=== PATIENT | male | born 1945 | race Two or more races ===

== ENCOUNTER 2017-11-15 12:18 | Emergency (ER) | payer MEDICARE ==
[~2017-11-15] VITALS: Ht 175.3 cm; Wt 96.2 kg
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
[2017-11-15] MEDS ORDERED: DIATR MEGLU/DIATRIZOATE SODIUM 30 ML BOTTLE (GASTROGRAPHIN) ONE (12:48)
[2017-11-15] MEDS ORDERED: DIATR MEGLU/DIATRIZOATE SODIUM 30 ML BOTTLE (GASTROGRAPHIN) PO ONE (13:00)
--- NOTE | 2017-11-15 13:26 | NUR ---
CALLED [facility] FOR TRANSPORTATION GOING BACK TO [facility] ETA [phone]
[2017-11-15 17:35] VITALS: BP 128/78
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
== END 2017-11-15 17:39 | disposition home or self-care (01) ==
LOC: ER 12:21
DX: K94.23 Gastrostomy malfunction (principal); G93.40 Encephalopathy, unspecified; N18.6 End stage renal disease; Z99.2 Dependence on renal dialysis; Z88.1 Allergy status to other antibiotic agents; Z88.2 Allergy status to sulfonamides
CPT/HCPCS: 43752; 74000; 99284; A4606 ×2; Q9963 ×2; Z7610

== ENCOUNTER 2017-11-15 22:10 | Emergency (ER) | payer MEDICARE ==
[~2017-11-15] VITALS: Ht 172.7 cm; Wt 89.4 kg
--- NOTE | 2017-11-15 22:15 | NUR ---
PT TO ER BED 7, CRISTINA BARNES FROM [facility] FOR G TUBE PLACEMENT. PT WAS HERE EARLIER TODAY FOR SAME C/O. VSS/RESP EVEN UNLABORED/NAD NOTED/SKIN WARM AND DRY. AWAITING MD STONE.
--- NOTE | 2017-11-15 22:20 | NUR ---
AT BEDSIDE FOR EVAL.
--- NOTE | 2017-11-15 22:25 | NUR ---
AT BEDSIDE FOR G TUBE PLACEMENT.
[2017-11-15] MEDS ORDERED: DIATR MEGLU/DIATRIZOATE SODIUM 30 ML BOTTLE (GASTROGRAPHIN) ONE (22:32)
--- NOTE | 2017-11-15 22:36 | NUR ---
XRAY AT BEDSIDE. 30 ML GASTRICGRAPH FLUSHED INTO GTUBE FOLLOWED BY 10ML OF WATER.
[2017-11-15] MEDS ORDERED: MORPHINE SULFATE INJ 2 MG/ML DISP.SYRIN IV ONE (23:00)
--- NOTE | 2017-11-15 23:13 | NUR ---
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
--- NOTE | 2017-11-15 23:30 | NUR ---
CALLED [facility] FOR TRANSPORTATION GOING BACK TO [facility] ETA 45-60 MIN
--- NOTE | 2017-11-16 00:43 | NUR ---
[facility] AT BEDSIDE FOR TRANSPORT TO [facility].
[2017-11-16 00:48] VITALS: BP 105/71
== END 2017-11-16 00:49 ==
LOC: ER 22:12
DX: Z43.1 Encounter for attention to gastrostomy (principal); F03.90 Unspecified dementia, unspecified severity, without behavioral disturbance, psychotic disturbance, mood disturbance, and anxiety; E11.22 Type 2 diabetes mellitus with diabetic chronic kidney disease; I12.0 Hypertensive chronic kidney disease with stage 5 chronic kidney disease or end stage renal disease; N18.6 End stage renal disease; Z88.1 Allergy status to other antibiotic agents; Z88.2 Allergy status to sulfonamides
CPT/HCPCS: 43752; 74000; 99285; A4606; Q9963; Z7610